=== PATIENT | female | born 1970 ===

== ENCOUNTER 2017-02-10 21:42 | Emergency (ER) | payer OTHER ==
[2017-02-10 21:59] VITALS: BP 159/85; PULSE 69; RESP 18; TEMP 98.3; O2SAT 99
[2017-02-10] MEDS ORDERED: TDAP Vaccine 0.5 mL Syr IM ONE (22:33)
--- NOTE | 2017-02-10 22:38 | ED PDOC ---
Arrival/HPI - General Historian: Patient - History of Present Illness Time/Duration: 4-6 hours Symptom Onset: Sudden Symptom Course: Unchanged Quality: Throbbing Severity Level: 5 Activities at Onset: Rest Context: Home <Carl Jj - Last Filed: 02/11/17 00:48> <Germain Guerra - Last Filed: 02/13/17 08:52> - General Chief Complaint: Abnormal Skin Integrity Time Seen by Provider: 02/10/17 22:11 - History of Present Illness Narrative History of Present Illness (Text): 02/10/17 22:34 This is a 46 yr old female with no significant past medical history who comes to [facility] with a cut injury to her right 2nd phalanx. The patient reports lifting the bed frame when it slipped and dropped on her right foot. She reports tenderness and throbbing sensation. She denies any alleviating or modifying factors. She denies any fevers, chills, shortness of breath, chest pain, numbness of the foot or any other complaints. (Carl Jj) Past Medical History - Provider Review Nursing Documentation Reviewed: Yes - Psychiatric Hx Substance Use: No <Carl Jj - Last Filed: 02/11/17 00:48> Family/Social History Family/Social History: No Known Family HX Smoking Status: Never Smoked Hx Alcohol Use: Yes Frequency of alcohol use: Socially Hx Substance Use: No <Carl Jj - Last Filed: 02/11/17 00:48> Allergies/Home Meds <Carl Jj - Last Filed: 02/11/17 00:48> <Germain Guerra - Last Filed: 02/13/17 08:52> Allergies/Adverse Reactions: Allergies burns Allergy (Verified 02/10/17 21:58) ANAPHYLAXIS peanut Allergy (Verified 02/10/17 21:58) ANAPHYLAXIS shellfish derived Allergy (Verified 02/10/17 21:58) ANAPHYLAXIS walnut Allergy (Verified 02/10/17 21:58) ANAPHYLAXIS wheat Allergy (Verified 02/10/17 21:58) ANAPHYLAXIS Home Medications: Home Meds Medication Instructions Recorded Confirmed No Known Home Med 02/10/17 02/10/17 Review of Systems - Physician Review All systems were reviewed & negative as marked: Yes - Review of Systems Constitutional: Normal. absent: Fevers, Night Sweats Eyes: Normal. absent: Vision Changes, Eye Pain ENT: Normal. absent: Sore Throat, Rhinorrhea, Sinus Congestion Respiratory: Normal. absent: SOB, Cough, Sputum, Wheezing Cardiovascular: Normal. absent: Chest Pain, Palpitations, Syncope Gastrointestinal: Normal. absent: Abdominal Pain, Constipation, Diarrhea, Vomiting, Hematochezia, Anorexia Genitourinary Female: absent: Normal, Frequency, Hematuria Musculoskeletal: Normal. absent: Back Pain, Neck Pain Skin: Laceration (On the secod phalanx of the right foot). absent: Rash, Skin Lesions Neurological: Normal. absent: Headache, Dizziness Endocrine: Normal. absent: Polyuria, Polydipsia Hemo/Lymphatic: Normal. absent: Easy Bleeding, Easy Bruising Psychiatric: Normal <Carl Jj - Last Filed: 02/11/17 00:48> Physical Exam Vital Signs Reviewed: Yes Temperature: Afebrile Blood Pressure: Hypertensive Pulse: Regular Respiratory Rate: Normal Appearance: Positive for: Well-Appearing, Non-Toxic, Comfortable Pain Distress: Mild Mental Status: Positive for: Alert and Oriented X 3 - Systems Exam Head: Present: Atraumatic, Normocephalic Pupils: Present: PERRL. No: Sluggish Extroacular Muscles: Present: EOMI. No: Gaze Palsy Conjunctiva: Present: Normal. No: Injected Mouth: Present: Moist Mucous Membranes, Normal Tounge. No: Dry, Drooling Neck: Present: Normal Range of Motion. No: JVD, Lymphadenopathy Respiratory/Chest: Present: Clear to Auscultation, Good Air Exchange. No: Respiratory Distress, Accessory Muscle Use, Wheezes Cardiovascular: Present: Regular Rate and Rhythm, Normal S1, S2. No: Murmurs, Tachycardic Abdomen: Present: Normal Bowel Sounds. No: Tenderness, Distention, Peritoneal Signs, Guarding Upper Extremity: Present: Normal Inspection. No: Cyanosis, Edema Lower Extremity: Present: Normal Inspection. No: Edema Neurological: Present: CN II-XII Intact, Speech Normal Skin: Present: Normal Color, Laceration (Noted on the 2nd phalanx of the right foot). No: Hot, Cold Psychiatric: Present: Alert, Oriented x 3, Normal Insight <Carl Jj - Last Filed: 02/11/17 00:48> Medical Decision Making <Carl Jj - Last Filed: 02/11/17 00:48> <Germain Guerra - Last Filed: 02/13/17 08:52> ED Course and Treatment: 02/10/17 22:42 Patient is a 46 yr. old female with no past medical history who comes into [facility] with an 2nd right phalanx laceration . I ordered right foot xray and Boostrix booster. The patient will be re-evaluated after lab results come back. 02/10/17 23:35 Right foot xray showed 2nd distal phalanx fracture. Will get a mayank splint for the injury. 02/11/17 00:31 Mayank splint placed. Patient will be discharged. (Carl Jj) Impression: Pt seen and evaluated with medical staff manager. Pt, with no significant past medical history, presented for laceration to 2nd digit of right foot. Pt states she dropped a bed frame on her foot earlier. Aware and agree with HPI, clinical findings, plan, and management. Plan: -- XR Right Foot -- Tetanus vaccine -- Lidocaine -- Reassess and disposition (Germain Guerra) - RAD Interpretation Radiology Orders: 02/10/17 22:28 FOOT RIGHT 3 VIEWS ROUTINE [RAD] Stat - Medication Orders Current Medication Orders: Discontinued Medications Ibuprofen (Motrin Tab) 600 mg PO STAT STA Stop: 02/11/17 00:42 Last Admin: 02/11/17 00:50 Dose: 600 mg Lidocaine HCl (Lidocaine 2% 20ml Vial) 2 ml IJ ONCE STA Stop: 02/10/17 22:52 Last Admin: 02/10/17 23:04 Dose: 2 ml Tetanus/Reduced Diphtheria/Acell Pertussis (Boostrix Vaccine Inj) 0.5 ml IM .ONCE ONE Stop: 02/10/17 22:34 Last Admin: 02/10/17 23:02 Dose: 0.5 ml - PA / TAPE DECK INSTALLER / Resident Statement / has examined the patient and agrees with the treatment plan. <Germain Guerra - Last Filed: 02/13/17 08:52> Disposition/Present on Arrival - Present on Arrival Any Indicators Present on Arrival: No History of DVT/PE: No History of Uncontrolled Diabetes: No Urinary Catheter: No History of Decub. Ulcer: No History Surgical Site Infection Following: None - Disposition Have Diagnosis and Disposition been Completed?: Yes Disposition Time: 00:39 Patient Plan: Discharge <АннаIdan - Last Filed: 02/11/17 00:48> - Present on Arrival Any Indicators Present on Arrival: No - Disposition Have Diagnosis and Disposition been Completed?: Yes <Germain Guerra - Last Filed: 02/13/17 08:52> - Disposition Diagnosis: Phalanx fracture, foot Disposition: HOME/ ROUTINE Condition: GOOD Discharge Instructions (ExitCare): Toe Fracture (ED) Additional Instructions: Patient instructed to f/u with her PMD within one week. Patient instructed keep mayank splint on at all times. Patient instructed to f/u with Transition Mgr Dr. Jason Calixto. Patient is to return to [facility] for any new symptoms or current symptoms worsen. Referrals: [facility], [Non-Staff] - Follow up with primary Beronica Calixto DPM [Staff Provider] - Follow up with primary Forms: [employer] (Bangladeshi)
[2017-02-10] MEDS ORDERED: Lidocaine 2% Inj (20ml) IJ STA (22:51)
--- NOTE | 2017-02-11 08:49 | RAD ---
PROCEDURE: Right Foot Radiographs. HISTORY: trauma to the right foot COMPARISON: None. FINDINGS: BONES: Bone alignment and mineralization are normal. There is a crush fracture in the distal aspect of the distal phalanx of the 2nd toe. There is a small dorsal calcaneal enthesophyte. JOINTS: Normal. SOFT TISSUES: There is soft tissue swelling in the distal 2nd toe. OTHER FINDINGS: None. IMPRESSION: Crash fracture in the distal aspect of the distal phalanx of the 2nd toe and surrounding soft tissue swelling.
== END 2017-02-11 00:56 | disposition home or self-care (01) ==
LOC: MERGE 21:42 → ED 21:42
DX: S92.531A Displaced fracture of distal phalanx of right lesser toe(s), initial encounter for closed fracture (principal); W20.8XXA Other cause of strike by thrown, projected or falling object, initial encounter; Z23 Encounter for immunization